=== PATIENT | female | born 1960 | race Caucasian/White ===

== ENCOUNTER 2025-02-19 04:34 | Emergency (ER) | payer MEDICARE, OTHER ==
[2025-02-19] MEDS ORDERED: NITRO-BID 2% UD PACKETS ONE (04:52)
[2025-02-19] MEDS ORDERED: BABY ASPIRIN 81 MG CHEW ONE (04:52)
[2025-02-19] MEDS: BABY ASPIRIN 81 MG CHEW PO ONE (04:54)
[2025-02-19] MEDS: NITRO-BID 2% UD PACKETS TOP ONE (04:54)
[2025-02-19 05:01] LABS: Absolute Neutrophil Ct (ANC) 3.57 x10^3/uL (1.56-6.13); BASOPHIL % 1.1 % (0.1-1.2); Basophil (Absolute #) 0.07 x10^3/uL (0.01-0.08); Eosinophil % 2.7 % (0.7-5.8); Eosinophil (Absolute #) 0.17 x10^3/uL (0.04-0.36); Hematocrit 39.2 % (34.1-44.9); Hemoglobin 13.2 g/dL (11.2-15.7); IMMATURE GRAN # 0.02 x10^3u/L (0.001-0.031); IMMATURE GRAN % 0.3 % (0.001-0.429); Lymphocyte (Absolute #) 2.04 x10^3/uL (1.18-3.74); Lymphocytes % 31.9 % (19.3-51.7); Mean Cell Volume 87.3 fL (79.4-94.8); Mean Corpuscular Hemoglobin 29.4 pg (25.6-32.2); Mean Corpuscular Hgb Concent. 33.7 g/dL (32.2-35.5); Mean Platelet Volume 9.1 fL (9.4-12.3); Monocyte (Absolute #) 0.52 x10^3/uL (0.24-0.86); Monocytes % 8.1 % (4.7-12.5); Neutrophil % 55.9 % (34.0-71.1); Platelet Count 283 x10^3/uL (182-369); Red Blood Count 4.49 x10^6/uL (3.93-5.22); Red Cell Distribution Width 12.9 % (11.7-14.4); White Blood Count 6.4 x10^3/uL (3.98-10.04)
[2025-02-19] MEDS ORDERED: Sodium Chloride 0.9% 1000 ML 1,000 ML ONE (05:03)
[2025-02-19] MEDS: Sodium Chloride 0.9% 1000 ML 1,000 ML IV SCH (05:05)
[2025-02-19] MEDS ORDERED: MAALOX ES 30 ML UNIT DOSE ONE (05:13)
[2025-02-19] MEDS ORDERED: XYLOCAINE VISCOUS 2% 15 ML CUP ONE (05:13)
[2025-02-19] MEDS: GI COCKTAIL 45 ML (Maalox/Lidocaine) PO ONE (05:14)
[2025-02-19 05:26] LABS: NT PRO BNPII 135 pg/mL (<300); TROPONIN < 0.012 ng/mL (0.000-0.033)
[2025-02-19 05:37] LABS: ALBUMIN 4.5 g/dL (3.5-5.0); ANION GAP 15.8 MEQ/L (5-15); BILIRUBIN,TOTAL 1.2 mg/dL (0.2-1.3); Calcium 9.5 mg/dL (8.4-10.2); Creatinine 1 0.67 mg/dL (0.52-1.04); EST GLOMERULAR FILTRATION RATE 98.8 ML/MIN; Potassium 3.5 mmol/L (3.5-5.1); Total Protein 7.3 g/dL (6.3-8.2)
[2025-02-19 05:48] VITALS: TEMP 97.8
--- NOTE | 2025-02-19 06:11 | ERPHSYRPT ---
- History of Present Illness Source: patient Exam Limitations: no limitations Patient Subjective Stated Complaint: PT. STATES, "I WAS ASLEEP AND I ROLLED OVER ONTO MY SIDE AND HAD SUDDEN SHARP PAIN UNDER MY LEFT BREAST AND NOW IT FEELS LIKE ITS GOING INTO MY LEFT SHOULDER." Triage Nursing Assessment: PT. AMBULATED TO ROOM WITHOUT DIFFICULTY, A&OX3, PLEASANT, COOPERATIVE, ANXIOUS, GUARDING LEFT CHEST. SKIN PINK, COOL, CLAMMY. RESP. RAPID, EVEN NONLABORED. Timing/Duration: today Severity: mild Associated Symptoms: denies symptoms Hx Tetanus, Diphtheria Vaccination/Date Given: Yes Hx Influenza Vaccination/Date Given: Yes Hx Pneumococcal Vaccination/Date Given: Yes Immunizations Up to Date: Yes <ROBERT THOMAS - Last Filed: 02/19/25 07:08> <EAMON KULKARNI - Last Filed: 02/19/25 08:26> - History of Present Illness Time Seen by Provider: 02/19/25 05:38 Allergies/Adverse Reactions: meloxicam [From Mobic] Allergy (Mild, Verified 09/11/12 12:48) Vomiting Sulfa (Sulfonamide Antibiotics) [Sulfa(Sulfonamide Antibiotics)] Allergy (Mild, Verified 09/11/12 12:48) Itching tetracycline [Tetracycline] Allergy (Mild, Verified 09/11/12 12:48) Itching penicillin G Allergy (Verified 09/11/12 12:48) Rash Home Medications: Cyclobenzaprine HCl 10 mg [Cyclobenzaprine 10 MG] 10 mg PO TID PRN 03/21/18 [History] Duloxetine HCl [Cymbalta] 60 mg PO DAILY 03/21/18 [History] Ergocalciferol (Vitamin D2) [Vitamin D2] 50,000 unit PO Q7D 03/21/18 [History] Ibuprofen 800 mg PO Q8HPRN PRN 03/21/18 [History] Levalbuterol Tartrate [Xopenex Hfa] 45 gm IH QID PRN 03/21/18 [History] Metoprolol Tartrate 50 mg [Lopressor 50 MG] 50 mg PO DAILY 03/21/18 [History] Pantoprazole 20 mg [Protonix 20MG Tablet] 20 mg PO DAILY 03/21/18 [History] levalbuterol HCL [Xopenex] 0.63 mg IH QID PRN 03/21/18 [History] Atorvastatin Calcium [Lipitor] 20 mg PO DAILY 02/19/25 [History] Hydrochlorothiazide 25 mg [hydroDIURIL 25 MG] 25 mg PO DAILY 02/19/25 [History] Semaglutide [Ozempic] 0.5 mg SQ WEEKLY 02/19/25 [History] Travel Risk - International Travel Have you traveled outside of the country in past 3 weeks: No - Emerging Infectious Disease Are you exhibiting symptoms associated with any current EIDs: No <ROBERT THOMAS - Last Filed: 02/19/25 07:08> - Review of Systems Constitutional: No Symptoms Eyes: No Symptoms Ears, Nose, & Throat: No Symptoms Respiratory: No Symptoms Cardiac: Chest Pain Abdominal/Gastrointestinal: No Symptoms Genitourinary Symptoms: No Symptoms Musculoskeletal: No Symptoms <ROBERT THOMAS - Last Filed: 02/19/25 07:08> - Past Medical History Pertinent Past Medical History: Yes Neurological History: No Pertinent History Cardiac History: Hypertension Respiratory History: Asthma, Other Endocrine Medical History: Other Musculoskeletal History: Fibromyalgia, Osteoarthritis Other Medical History: PRE DIABETIC, SOB. - Past Surgical History Past Surgical History: Yes Female Surgical History: Hysterectomy - Social History Smoking Status: Never smoker Exposure to second hand smoke: No Drug Use: none - Social Determinants of Health Will the patient participate in the screening: Declined to provide <ROBERT THOMAS - Last Filed: 02/19/25 07:08> - Physical Exam General Appearance: no apparent distress Eye Exam: PERRL/EOMI Ears, Nose, Throat Exam: normal ENT inspection Respiratory Exam: normal breath sounds Cardiovascular Exam: regular rate/rhythm, normal heart sounds Gastrointestinal/Abdomen Exam: soft, normal bowel sounds SpO2: 97 <ROBERT THOMAS - Last Filed: 02/19/25 07:08> - Nursing Vital Signs Nursing Vital Signs: Initial Vital Signs Temperature 97.8 F 02/19/25 04:34 Pulse Rate 74 02/19/25 04:34 Respiratory Rate 18 02/19/25 04:34 Blood Pressure 139/72 02/19/25 04:34 O2 Sat by Pulse Oximetry 97 02/19/25 04:34 Pain Scale Pain Intensity 0 Ordered Tests: Active Orders 24 hr Category Date Time Status CHEST WITH CONTRAST [CT] Stat Exams 02/19/25 04:48 Completed AMYLASE Stat Lab 02/19/25 04:58 Completed CBC W DIFF Stat Lab 02/19/25 04:58 Completed CK-Creatinine Phosphokinase Stat Lab 02/19/25 04:58 Completed CMP Stat Lab 02/19/25 04:58 Completed LIPASE Stat Lab 02/19/25 04:58 Completed NT PRO BNPII Stat Lab 02/19/25 04:58 Completed TROPONIN Q4H Lab 02/19/25 04:58 Completed TROPONIN Q4H Lab 02/19/25 07:51 Completed TROPONIN Q4H Lab 02/19/25 13:00 Ordered Medication Summary Generic Name Dose Route Start Last Admin Trade Name Freq PRN Reason Stop Dose Admin Sodium Chloride 1,000 mls @ 50 mls/hr 02/19/25 05:00 02/19/25 05:05 Sodium Chloride 0.9% 1000 Ml IV 03/21/25 04:59 50 mls/hr .Q20H NAYANA Administration Discontinued Medications Generic Name Dose Route Start Last Admin Trade Name Freq PRN Reason Stop Dose Admin Al Hydrox/Mg Hydrox/Simethicone Confirm 02/19/25 05:13 Mag Hydrox/Al Hydrox/Simeth 30 Ml Udcup Administered 02/19/25 05:14 Dose 30 ml .ROUTE .STK-MED ONE Aspirin 324 mg 02/19/25 04:47 02/19/25 04:54 Aspirin 81 Mg Tab.Chew PO 02/19/25 04:48 324 mg STAT ONE Administration Aspirin Confirm 02/19/25 04:52 Aspirin 81 Mg Tab.Chew Administered 02/19/25 04:53 Dose 324 mg .ROUTE .STK-MED ONE Lidocaine HCl Confirm 02/19/25 05:13 Lidocaine Hcl 2% Viscous 15 Ml Udcup Administered 02/19/25 05:14 Dose 15 ml .ROUTE .STK-MED ONE Magnesium Hydroxide 45 ml 02/19/25 05:12 02/19/25 05:14 Mag Hydrx/Alum Hyd/Simeth/Lido 45 Ml Bottle PO 02/19/25 05:13 45 ml STAT ONE Administration Nitroglycerin 1 gm 02/19/25 04:47 02/19/25 04:54 Nitroglycerin 1 Gm Packet TOP 02/19/25 04:48 1 gm STAT ONE Administration Nitroglycerin Confirm 02/19/25 04:52 Nitroglycerin 1 Gm Packet Administered 02/19/25 04:53 Dose 1 gm .ROUTE .STK-MED ONE Lab/Rad Data: Laboratory Result Diagrams 02/19/25 04:58 02/19/25 04:58 Laboratory Results 02/19/25 02/19/25 02/19/25 Range/Units 07:51 04:58 04:58 WBC (3.98-10.04) x10^3/uL RBC (3.93-5.22) x10^6/uL Hgb (11.2-15.7) g/dL Hct (34.1-44.9) % MCV (79.4-94.8) fL MCH (25.6-32.2) pg MCHC (32.2-35.5) g/dL RDW (11.7-14.4) % Plt Count (182-369) x10^3/uL MPV (9.4-12.3) fL Gran % (34.0-71.1) % Immature Gran % (Auto) (0.001-0.429) % Nucleat RBC Rel Count (0.00-0.2) % Eos # (Auto) (0.04-0.36) x10^3/uL Immature Gran # (Auto) (0.001-0.031) x10^3u/L Absolute Lymphs (auto) (1.18-3.74) x10^3/uL Absolute Monos (auto) (0.24-0.86) x10^3/uL Absolute Nucleated RBC (0.00-0.012) x10^3u/L Lymphocytes % (19.3-51.7) % Monocytes % (4.7-12.5) % Eosinophils % (0.7-5.8) % Basophils % (0.1-1.2) % Absolute Granulocytes (1.56-6.13) x10^3/uL Basophils # (0.01-0.08) x10^3/uL Sodium 141 (135-145) mmol/L Potassium 3.5 (3.5-5.1) mmol/L Chloride 103 (98-107) mmol/L Carbon Dioxide 26 (22-30) mmol/L Anion Gap 15.8 H (5-15) MEQ/L BUN 20 H (7-17) mg/dL Creatinine 0.67 (0.52-1.04) mg/dL Estimated GFR 98.8 ML/MIN Glucose 108 H (74-106) mg/dL Calcium 9.5 (8.4-10.2) mg/dL Total Bilirubin 1.20 (0.2-1.3) mg/dL AST 33 (14-36) U/L ALT 28 (0-35) U/L Alkaline Phosphatase 69 (38-126) U/L Creatine Kinase 47 (30-135) U/L Troponin I < 0.012 < 0.012 (0.000-0.033) ng/mL NT-Pro-B Natriuret Pep 135 (<300) pg/mL Serum Total Protein 7.3 (6.3-8.2) g/dL Albumin 4.5 (3.5-5.0) g/dL Amylase 63 (30-110) U/L Lipase 120 (23-300) U/L 04// Range/Units 04:58 WBC 6.4 (3.98-10.04) x10^3/uL RBC 4.49 (3.93-5.22) x10^6/uL Hgb 13.2 (11.2-15.7) g/dL Hct 39.2 (34.1-44.9) % MCV 87.3 (79.4-94.8) fL MCH 29.4 (25.6-32.2) pg MCHC 33.7 (32.2-35.5) g/dL RDW 12.9 (11.7-14.4) % Plt Count 283 (182-369) x10^3/uL MPV 9.1 L (9.4-12.3) fL Gran % 55.9 (34.0-71.1) % Immature Gran % (Auto) 0.3 (0.001-0.429) % Nucleat RBC Rel Count 0.0 (0.00-0.2) % Eos # (Auto) 0.17 (0.04-0.36) x10^3/uL Immature Gran # (Auto) 0.02 (0.001-0.031) x10^3u/L Absolute Lymphs (auto) 2.04 (1.18-3.74) x10^3/uL Absolute Monos (auto) 0.52 (0.24-0.86) x10^3/uL Absolute Nucleated RBC 0.00 (0.00-0.012) x10^3u/L Lymphocytes % 31.9 (19.3-51.7) % Monocytes % 8.1 (4.7-12.5) % Eosinophils % 2.7 (0.7-5.8) % Basophils % 1.1 (0.1-1.2) % Absolute Granulocytes 3.57 (1.56-6.13) x10^3/uL Basophils # 0.07 (0.01-0.08) x10^3/uL Sodium (135-145) mmol/L Potassium (3.5-5.1) mmol/L Chloride (98-107) mmol/L Carbon Dioxide (22-30) mmol/L Anion Gap (5-15) MEQ/L BUN (7-17) mg/dL Creatinine (0.52-1.04) mg/dL Estimated GFR ML/MIN Glucose (74-106) mg/dL Calcium (8.4-10.2) mg/dL Total Bilirubin (0.2-1.3) mg/dL AST (14-36) U/L ALT (0-35) U/L Alkaline Phosphatase (38-126) U/L Creatine Kinase (30-135) U/L Troponin I (0.000-0.033) ng/mL NT-Pro-B Natriuret Pep (<300) pg/mL Serum Total Protein (6.3-8.2) g/dL Albumin (3.5-5.0) g/dL Amylase (30-110) U/L Lipase (23-300) U/L <ROBERT THOMAS - Last Filed: 02/19/25 07:08> - Progress Progress: improved, re-examined Counseled pt/family regarding: lab results, need for follow-up, rad results <EAMON KULKARNI - Last Filed: 02/19/25 08:26> - Progress Progress Note: Patient was seen and evaluated for chest pain labs were ordered CT chest was ordered to rule out PE she was given aspirin and nitroglycerin 02/19/25 06:02 Patient was updated with her results and informed of the need for f repeat troponin, she is agreeable. CT of the chest reveals no evidence of PE. Care of this patient will be transferred to Dr. Kulkarni repeat cardiac enzymes pending and disposition 02/19/25 07:08 (ROBERT THOMAS) 02/19/25 08:16 I interpreted the patient's repeat twelve-lead EKG that was performed on 02/19/2025 at 8 oh 2 in the morning. The heart rate is 58 bpm. There is normal sinus rhythm with a short AR interval. There is normal axis deviation and normal QRS. QTc is 444. There is no evidence of acute ischemia. Reexamination of the patient shows no chest pain and no shortness of breath. 02/19/25 08:17 CT scan of the chest with contrast was interpreted by the radiologist and I reviewed the impression. The impression states there is no evidence of acute cardiopulmonary process. There is no evidence of pulmonary embolus. 02/19/25 08:25 The repeat, second troponin, is normal. (EAMON KULKARNI) Medical Desision Making - Independent Historian Additional History obtained from: Family - Diagnostic Testing Diagnostic test were ordered, analyzed, and reviewed by me: Yes Radiological Interpretation: Reviewed by me, Teleradiologist Report - Risk of complications Low Risk: Low risk of morbidity from additional dx testing or treatment <EAMON KULKARNI - Last Filed: 02/19/25 08:26> - Departure Departure Disposition: Home Critical Care Time: No <ROBERT THOMAS - Last Filed: 02/19/25 07:08> <EAMON KULKARNI - Last Filed: 02/19/25 08:26> - Departure Clinical Impression: Chest pain Condition: Good Referrals: EDWIN KELLY [Primary Care Provider] - Follow up/PCP as directed Additional Instructions: Call your primary care provider today, 02/19/2025 to make arrangements for follow-up appointment to be seen in the next 2 to 3 days. Continue medications as prescribed.
--- NOTE | 2025-02-19 06:45 | XRAY ---
CLINICAL HISTORY: left sided chest pain r/o pe COMPARISON: None. TECHNIQUE: Contiguous axial images were obtained from the neck base through the upper abdomen following intravenous administration of contrast material. If IV contrast material had not been administered, the likelihood of detecting abnormalities relevant to the patient's condition would have been substantially decreased. In addition, sagittal and coronal reconstructions were performed. CT scan was performed according to ALARA (as low as reasonable achievable). FINDINGS: The lungs are clear, with no focal areas of consolidation. No pulmonary nodules are seen. The central airways are patent. There are no pleural effusions. No pneumothorax is seen. No axillary, hilar, or mediastinal adenopathy is identified. The visualized thyroid is unremarkable. The heart, aorta, and pulmonary arteries are of normal size and configuration. No pericardial effusion is identified. Imaged portions of the upper abdomen are unremarkable. No aggressive appearing osseous lesions are identified. IMPRESSION: 1. No obvious evidence of pulmonary embolism in main pulmonary artery, right. and left pulmonary arteries and segmental arteries in bilateral lungs. 2. No acute pulmonary disease Electronically Signed by: Kendall Jerry MD. (02/19/2025 06:42:04 EDT)
[2025-02-19 08:33] VITALS: BP 105/63; PULSE 55; RESP 14; O2SAT 96
== END 2025-02-19 08:40 | disposition home or self-care (01) ==
LOC: ED 04:34
DX: R07.9 Chest pain, unspecified (principal); I10 Essential (primary) hypertension; Z79.85 Long-term (current) use of injectable non-insulin antidiabetic drugs; Z79.899 Other long term (current) drug therapy
CPT/HCPCS: 36415; 71260; 80053; 82150; 82550; 83690; 83880; 84484; 85025; 93005; 96374; 99284; 99285; A9270-GY